=== PATIENT | female | born 1965 | race Caucasian/White ===

== ENCOUNTER 2022-07-12 11:21 | Outpatient (CLI) | payer OTHER ==
[~2022-07-12 11:21] MED LIST: B-121000 MC2 SL; B-TREX PO; CATAFLAN PO; ECOTRIN81 MG PO; IRO-PLEX LIQUI120 ML PO; LEVO-T150 MCG PO; NEURIN SL; POLY119PG; VASOFLEX FORTE1 CAP PO
== END 2022-07-12 11:24 | disposition home or self-care (01) ==
LOC: NUCLEAR 11:21
PROVIDERS: ATTEND Neuromusculoskeletal Medicine & OMM
DX: I70.203 Unspecified atherosclerosis of native arteries of extremities, bilateral legs (principal); I70.223 Atherosclerosis of native arteries of extremities with rest pain, bilateral legs

== ENCOUNTER 2024-12-15 14:07 | Emergency (ER) | payer OTHER ==
[~2024-12-15] VITALS: Ht 162.6 cm; Wt 102.1 kg
[2024-12-15] MEDS ORDERED: LOSARTAN POTASS50 MG PO (15:18)
[2024-12-15] MEDS ORDERED: LIPITOR20 MG PO (15:18)
[2024-12-15] MEDS ORDERED: HYDROCODONE/CHLORPHEN P-STIREX 5 ML ML PO STA (17:50)
[2024-12-15 18:30] LABS: BASO % 0.5 % (0.1-1.2); EOS # 0.14 (0.04-0.54); EOS % 3.4 % (0.7-7.0); HEMATOCRIT 42.1 % (34.1-44.9); HEMOGLOBIN 13.9 g/dL (11.2-15.7); MEAN CORPUSCULAR HEMOGLOBIN 29.8 pg (25.6-32.2); MONO # 0.49 (0.24-0.82); MONO % 11.8 % (4.7-12.5); NEUT % 60.1 % (34.0-71.1); PLATELET COUNT 180 K/uL (163-369); RED BLOOD COUNT 4.66 M/uL (3.93-5.22); RED CELL DISTRIBUTION WIDTH 13.5 % (11.6-14.4)
[2024-12-15 19:12] LABS: COVID-19 AG NEGATIVE (NEGATIVE)
[2024-12-15 19:15] LABS: INFLUENZA A AG NEGATIVE (NEGATIVE); INFLUENZA B AG NEGATIVE (NEGATIVE)
== END 2024-12-15 21:33 | disposition home or self-care (01) ==
LOC: ER 14:07
DX: J06.9 Acute upper respiratory infection, unspecified (principal); Z20.822 Contact with and (suspected) exposure to COVID-19